=== PATIENT | male | born 1975 | race Two or more races ===

== ENCOUNTER 2019-11-20 23:25 | Emergency (ER) | payer OTHER ==
[~2019-11-20] VITALS: Ht 188 cm; Wt 100.2 kg
--- NOTE | 2019-11-20 23:43 | NUR ---
PT BIBRA 89 FROM BUS STOP FOR ETOH. FBS 92. PER RA, PD NOTED WHILE TALKING TO PT, LAID TO GOWN AND WENT TO SLEEP. PT AO RESPONSIVE TO PAINFUL STIMULI. RR EVEN AND UNLABORED. NO SOB NOTED. NO NVD AT THIS TIME. PER RA PLACED 18G IV ON RFA GAVE 4MG ZOFRAN.
--- NOTE | 2019-11-21 02:47 | NUR ---
PATIENT IS ASLEEP. EASILY AROUSABLE THROUGH TACTILE AND VERBAL STIMULI. PATIENT IS BREATHING EVENLY AND UNLABORED. SIDE RAILS UP FOR SAFETY. SITTER AT BEDSIDE.
--- NOTE | 2019-11-21 05:59 | NUR ---
IV removed. Catheter intact and site benign. Pressure and 4x4 applied to site. No bleeding noted.
--- NOTE | 2019-11-21 06:02 | NUR ---
Patient given written and verbal discharge instructions. Patient verbalizes understanding of instructions. Patient is ambulatory with steady gait. Refuses offer of [facility]ci placement. Patient given list of available shelters in surrounding area.
[2019-11-21 06:05] VITALS: BP 128/79
== END 2019-11-21 06:05 | disposition home or self-care (01) ==
LOC: ER 23:27
DX: F10.129 Alcohol abuse with intoxication, unspecified (principal); Y90.9 Presence of alcohol in blood, level not specified

== ENCOUNTER 2019-11-21 13:58 | Emergency (ER) | payer OTHER ==
[~2019-11-21] VITALS: Ht 172.7 cm; Wt 102.1 kg
--- NOTE | 2019-11-21 14:52 | NUR ---
Patient ETOH moved room 15 lethargic arousable hooked in the monitor sitter @ bedside continue to monitor
--- NOTE | 2019-11-21 16:38 | NUR ---
Patient eyes close arousable wet himself with urine back to sleep no orders @ this time keep patient clean and dry .
--- NOTE | 2019-11-21 18:26 | NUR ---
Patient wake up looking for his phone and patient back to sleep
--- NOTE | 2019-11-21 19:02 | NUR ---
Patient awake alert able to ambulated wants to call his friend non distress no dizzy steady gate would like to DC home
[2019-11-21 19:04] VITALS: BP 134/89
== END 2019-11-21 19:05 | disposition home or self-care (01) ==
LOC: ER 14:00
DX: F10.129 Alcohol abuse with intoxication, unspecified (principal); Z59.0 Homelessness; Y90.9 Presence of alcohol in blood, level not specified